=== PATIENT | male | born 1985 | race Caucasian/White ===

== ENCOUNTER 2019-09-16 12:21 | Emergency (ER) | payer BC, OTHER ==
[~2019-09-16] VITALS: Ht 182.8 cm; Wt 122.8 kg
[2019-09-16] MEDS ORDERED: LACTATED RINGERS 1,000 ML IV ONE (12:47)
[2019-09-16 12:58] LABS: BASOPHILS % (AUTO) 0 % (0-10); EOSINOPHILS # (AUTO) 0.1 10^3/uL (0.0-0.3); EOSINOPHILS % (AUTO) 1 % (0-10); HEMATOCRIT 50 % (40-54); HEMOGLOBIN 17.5 G/DL (13.3-17.7); LYMPHOCYTES % (AUTO) 19 % (12-44); MEAN CORPUSCULAR HEMOGLOBIN 29 PG (25-34); MEAN CORPUSCULAR HGB CONC 35 G/DL (32-36); MEAN CORPUSCULAR VOLUME 83 FL (80-99); MEAN PLATELET VOLUME 10.2 FL (7.4-10.4); MONOCYTES # (AUTO) 1.5 X 10^3 (0.0-1.0); MONOCYTES % (AUTO) 14 % (0-12); NEUTROPHILS # (AUTO) 6.7 X 10^3 (1.8-7.8); NEUTROPHILS % (AUTO) 65 % (42-75); PLATELET COUNT 322 10^3/uL (130-400); RED CELL DISTRIBUTION WIDTH 14.6 % (10.0-14.5); WHITE BLOOD COUNT 10.3 10^3/uL (4.3-11.0)
[2019-09-16 13:14] LABS: CHLORIDE 98 MMOL/L (98-107); POTASSIUM 4.4 MMOL/L (3.6-5.0); SODIUM 135 MMOL/L (135-145)
[2019-09-16 13:15] LABS: CALCIUM 9.6 MG/DL (8.5-10.1)
[2019-09-16 13:16] LABS: GLUCOSE 91 MG/DL (70-105)
[2019-09-16 13:17] LABS: CARBON DIOXIDE 23 MMOL/L (21-32)
[2019-09-16 13:20] LABS: CREATININE SERUM 1.01 MG/DL (0.60-1.30); GFR ESTIMATED > 60
[2019-09-16 13:21] LABS: BUN/CREATININE RATIO 11
[2019-09-16 13:22] LABS: MAGNESIUM 2.8 MG/DL (1.6-2.4)
[2019-09-16 13:23] LABS: CREATINE KINASE 1382 U/L (30-200)
[2019-09-16] MEDS ORDERED: NS IV 1000 ML 1,000 ML IV SCH (13:50)
--- NOTE | 2019-09-16 14:20 | ED General ---
General Chief Complaint: General Problems/Pain Stated Complaint: BACK / LEG CRAMPING Nursing Triage Note: Pt ambulatory to ED. Pt c/o leg cramping for two days. Pt reports drinking gatorade and extra water with no relief. Pt denies pain at assessment and reports pain worsens while lying down. Nursing Sepsis Screen: No Definite Risk Source of Information: Patient Exam Limitations: No Limitations History of Present Illness Date Seen by Provider: Sep 16, 2019 Time Seen by Provider: 12:39 Initial Comments This 33-year-old gentleman presents to emergency room with complaints of muscle cramping in his legs and cotton mouth. He feels exhausted and dehydrated. 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 He has been working long hours without days off in the heat. He tries to stay caught up on drinking but it is hard to bring fluids up onto the cranes where he works. He is afebrile and denies any signs or symptoms of infectious illness. Allergies and Home Medications Allergies Coded Allergies: No Known Drug Allergies (Unverified , 09/16/19) Patient Home Medication List Home Medication List Reviewed: Yes Review of Systems Review of Systems Constitutional: see HPI EENTM: see HPI Respiratory: no symptoms reported Cardiovascular: no symptoms reported Gastrointestinal: no symptoms reported Genitourinary: no symptoms reported Musculoskeletal: see HPI Skin: no symptoms reported Psychiatric/Neurological: No Symptoms Reported Hematologic/Lymphatic: No Symptoms Reported Immunological/Allergic: no symptoms reported Past Ngkpjfl-[id number]-Cnnfdf Hx Patient Social History Alcohol Use: Occasionally Uses Recreational Drug Use: No Type Used: Smokeless Tobacco 2nd Hand Smoke Exposure: No Recent Foreign Travel: No Contact w/Someone Who Travel: No Recent Infectious Disease Expo: No Recent Hopitalizations: No Past Medical History Surgeries: Yes Tonsillectomy Respiratory: No Cardiac: No Neurological: No Genitourinary: No Gastrointestinal: No Musculoskeletal: No Endocrine: No HEENT: No Cancer: No Psychosocial: No Integumentary: No Blood Disorders: No Physical Exam Vital Signs Vital Signs - First Documented 09/16/19 12:33 Temp 36.3 Pulse 93 Resp 20 B/P (MAP) 137/112 (120) Pulse Ox 97 O2 Delivery Room Air Capillary Refill : Less Than 3 Seconds Height, Weight, BMI Height: '" Weight: lbs. oz. kg; 36.00 BMI Method: General Appearance: No Apparent Distress, WD/WN HEENT: PERRL/EOMI, Normal ENT Inspection, Pharynx Normal Neck: Normal Inspection Respiratory: Lungs Clear, Normal Breath Sounds, No Accessory Muscle Use, No Respiratory Distress Cardiovascular: Regular Rate, Rhythm, No Edema, No Murmur Gastrointestinal: Non Tender, Soft Extremity: Normal Inspection, Non Tender, No Pedal Edema Neurologic/Psychiatric: Alert, Oriented x3, No Motor/Sensory Deficits, Normal Mood/Affect, corporate learning consultant II-XII Norm as Tested Skin: Normal Color, Warm/Dry Progress/Results/Core Measures Suspected Sepsis Recent Fever Within 48 Hours: No Infection Criteria Present: None New/Unexplained Altered Menta: No Sepsis Screen: No Definite Risk SIRS Temperature: Pulse: 93 Respiratory Rate: 20 Laboratory Tests 09/16/19 12:50: White Blood Count 10.3 Blood Pressure 137 /112 Mean: 120 Laboratory Tests 09/16/19 12:50: Creatinine 1.01, Platelet Count 322 Results/Orders Lab Results My Orders Medications Given in ED Vital Signs/I&O Capillary Refill : Less Than 3 Seconds Blood Pressure Mean: 120 Progress Note : Progress Note Workup was unremarkable except for elevated CK. He received 2 L of IV fluid. We discussed strategies for preventing this problem in the future, primarily allowing time for rest. He was likely bordering on rhabdomyolysis. Departure Impression Primary Impression: Rhabdomyolysis Qualified Codes: M62.82 - Rhabdomyolysis Additional Impressions: Exhaustion Muscle cramp Disposition: HOME, SELF-CARE Condition: Improved Departure-Patient Inst. Decision time for Depature: 14:16 Referrals: NO,LOCAL PHYSICIAN (PCP/Family) Primary Care Physician Patient Instructions: Rhabdomyolysis (DC) Add. Discharge Instructions: Your lab work suggests you are bordering on rhabdomyolysis from muscle overuse, lack of rest, and insufficient hydration. Drink plenty of clear liquids and take frequent breaks to rest throughout the day. Rest in a cool environment whenever possible. Take a day off at least once a week to allow recovery. Follow-up with a primary care provider soon as possible. Return to the emergency room if you have worsening symptoms. All discharge instructions reviewed with patient and/or family. Voiced understanding. Work/School Note: Work Release Form Date Seen in the Emergency Department: Sep 16, 2019 Return to Work: Sep 18, 2019 Other Restrictions Listed Below: Take frequent breaks. Take at least one day off weekly. Rest when exhausted Restrictions: Hydrate thoroughly throughout the work day. AMANDA JOHNSON MD Sep 16, 2019 14:20
[2019-09-16 14:27] VITALS: BP 124/85
== END 2019-09-16 14:28 | disposition home or self-care (01) ==
LOC: ER 12:22
DX: M62.82 Rhabdomyolysis (principal)
CPT/HCPCS: 36415; 80048; 82550; 83735; 85025